=== PATIENT | male | born 1965 | race Caucasian/White ===

== ENCOUNTER → 2016-06-04 | Outpatient (CLI) | payer OTHER | END | disposition home or self-care (01) | LOC: C.PATHSPEC 11:55 | PROVIDERS: ATTEND Dermatology | DX: L30.8 Other specified dermatitis (principal) ==

== ENCOUNTER 2022-02-02 09:52 | Observation (INO) ==
--- NOTE | 2022-02-02 10:18 | Emergency Department Note ---
Impression & Plan Facial droop ED Provider Note NAME: KARLA LIEBERMAN AGE: 57 SEX: M : 1965 ARRIVES VIA: Walk-In INFORMANT: Patient, ED PROVIDER(S): Irvin Means DO CHIEF COMPLAINT: Strokelike symptoms HPI: Is a 57-year-old male noticed this morning when he was drinking his morning drink that he had difficulty drinking and numbness on the right side of his face. The patient looked in the mirror and noticed that he could not smile anika ectly and he noticed that he had a right-sided facial droop which included his forehead. The patient presented to the emergency department for further evaluation of strokelike symptoms. He denies having any chest pain. He denies having any current headache but he has noticed headaches over the last few weeks. He does not take any medications as an outpatient. The patient does not notice any weakness in the arms or legs. He has had no recent trauma. The patient does not spend much time in the little and has not had any recent tick bites. ROS: See above HPI for pertinent positives & negatives. A total of 10 systems reviewed and were otherwise negative. PAST MEDICAL HISTORY: See Below PAST SURGICAL HISTORY: See Below FAMILY HISTORY: See Below SOCIAL HISTORY: See Below HOME MEDICATIONS: See Below ALLERGIES: See Below VITALS: See Below PHYSICAL EXAMINATION: GENERAL: Patient is awake alert in no acute distress patient is resting comfortably and showing no signs of anxiety EYES: The conjunctivae are clear. The pupils are round and reactive. EARS, NOSE, MOUTH AND THROAT: The nose is without any evidence of any deformity. Mucous membranes are moist. Tympanic membranes are clear bilaterally NECK: The neck is nontender and supple. RESPIRATORY: Normal respiratory effort is noted there is no evidence of wheezing rhonchi or rales CARDIOVASCULAR: Regular rate and rhythm noted there no murmurs rubs or gallops normal S1 normal S2. GASTROINTESTINAL: The abdomen is soft. Abdomen is nontender. MUSCULOSKELETAL/EXTREMITIES: There is no evidence of gross deformity full range of motion is noted in the hips and shoulders. SKIN: There is no obvious evidence of any rash. There are no petechiae, pallor or cyanosis noted. NEUROLOGIC: Patient is awake alert and oriented x3 strength is symmetric patellar reflexes are 2+ bilaterally. There is a right-sided facial droop which includes the forehead. MEDICAL DECISION MAKING: The patient is a 57-year-old male who presented to the emergency department for an evaluation of right-sided facial droop. 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 The patient had CT of the brain in the emergency department. This appears to show signs of previous stroke. He has no history of stroke. He has no medical history and no medical follow-up. I discussed the patient's laboratory and radiographic studies with him. I also discussed further work-up which could include MRI of the brain angiography and echocardiogram as well as control of his blood pressure and antiplatelet therapy. Unfortunately since the patient does not have a family doctor I cannot ensure follow-up as well as further testing. I discussed with the patient whether or not we should do some of these tests in the emergency department but given his overall situation we decided to talk this over with the admitting team. They have agreed to evaluate the patient in the emergency department for further management and disposition. I discussed this case with Dr. Rubio who is on for the [facility] hospitalist group. They will evaluate the patient in the emergency department. Triage Nursing notes reviewed. Prior medical records reviewed Vital Signs: reviewed and remarkable for elevated blood pressure Differential diagnosis: Infection, dehydration, metabolic abnormality, hypo/hyperglycemia, electrolyte disturbance, anemia, hypoxia, cardiac sources, intracerebral event, toxicologic, neurologic, as well as other pathologies. ER treatment provided: See below Diagnostics interpreted by me: ECG: EKG was obtained in the emergency department. My interpretation is normal sinus rhythm at 73 bpm. There is no ectopy. LVH was noted by voltage criteria. No previous tracing was available. Cardiac Monitoring: An order was placed for continuous cardiac monitoring. The monitor shows a rate of 66 bpm with sinus rhythm. Laboratory studies: As stated above and show below. Imaging studies: See below Consultation(s): I discussed this case with Dr. Rubio. Made a stroke alert given his onset of symptoms and his last known well time. Past Med/Surg History Medical History (Updated 02/02/22 @ 14:14 by Peter Rubio MD) Hypertension Family History (Updated 02/02/22 @ 13:59 by Peter Rubio MD) Father Hypertension Heart disease Cancer Mother Asthma Social History Feels Safe at Home: Yes Results & Data (ED) Vital Signs Vital Signs - 24 hr 02/02/22 09:58 02/02/22 11:49 02/02/22 13:47 Temperature 37.0 C Temperature Source Temporal Artery Scan Pulse Rate 88 Pulse Rate [Radial] 68 69 Pulse Rhythm [Radial] Regular Regular Respiratory Rate 18 16 18 Respiratory Effort / Characteristics Non-Labored Non-Labored Non-Labored Respiratory Depth Normal Normal Normal Respiratory Pattern Regular Regular Regular Blood Pressure 186/98 H Blood Pressure [Right Arm] 157/90 H 152/90 H Blood Pressure Mean 127 Blood Pressure Mean [Right Arm] 112 110 Blood Pressure Position Sitting Blood Pressure Position [Right Arm] Pulse Oximetry 98 98 97 Oxygen Delivery Method Room Air Room Air Room Air Sepsis Recent Fever Within 48 Hours No Sepsis New/Unexplained Change in Mental Status No Sepsis Action Taken by Nursing No Action Required 02/02/22 14:03 Temperature Temperature Source Pulse Rate Pulse Rate [Radial] 66 Pulse Rhythm [Radial] Respiratory Rate 20 Respiratory Effort / Characteristics Non-Labored Respiratory Depth Normal Respiratory Pattern Blood Pressure Blood Pressure [Right Arm] 158/93 H Blood Pressure Mean Blood Pressure Mean [Right Arm] 114 Blood Pressure Position Blood Pressure Position [Right Arm] Sitting Pulse Oximetry 96 Oxygen Delivery Method Room Air Sepsis Recent Fever Within 48 Hours Sepsis New/Unexplained Change in Mental Status Sepsis Action Taken by Shelter Medications Current Medication List: was personally reviewed by me Laboratory Data Attestation: I reviewed the patient's lab results. Result diagrams: 02/02/22 10:24 02/02/22 10:24 Lab Results 02/02/22 02/02/22 02/02/22 Range/Units 10:24 10:24 10:24 WBC 5.76 (4.8-10.8) K/ul RBC 5.52 (4.63-6.08) M/uL Hgb 16.0 (14.0-18.0) g/dl Hct 44.5 (40.1-51.0) % MCV 80.6 (80.0-100.0) fL MCH 29.0 (25.0-34.0) pg MCHC 36.0 (32.0-36.0) g/dL RDW Std Deviation 37.8 (36.4-46.3) fL RDW Coeff of Judah 13.1 (11.5-14.5) % Plt Count 204 (130-400) K/uL MPV 9.5 (9.4-12.4) fL Immature Gran % (Auto) 0.2 % Neut % (Auto) 49.2 % Lymph % (Auto) 39.2 % [place] % (Auto) 8.9 % Eos % (Auto) 2.3 % Baso % (Auto) 0.2 % Neut # (Auto) 2.84 (1.4-6.5) K/uL Lymph # (Auto) 2.26 (1.2-3.4) K/uL [place] # (Auto) 0.51 (0.24-0.82) K/uL Eos # (Auto) 0.13 (0-0.50) K/uL Baso # (Auto) 0.01 (0-0.2) K/uL Immature Gran # (Auto) 0.01 (0.00-0.02) K/uL Sodium 140 (136-145) mmol/L Potassium 3.5 (3.5-5.1) mmol/L Chloride 106 (98-107) mmol/L Carbon Dioxide 27 (21-32) mmol/L Anion Gap 7 (3-11) BUN 21 (6-23) mg/dl Creatinine 0.90 (0.6-1.4) mg/dl Est Cr Clr Drug Dosing 101.1 ml/min Est GFR ( Amer) 108.7 ml/min Est GFR (Non-Af Amer) 93.8 ml/min BUN/Creatinine Ratio 23.3 H (10-20) Glucose 114 H (70-99(Fasting)) mg/dl Calcium 9.2 (8.5-10.1) mg/dl Magnesium 2.0 (1.7-2.4) mg/dl Total Bilirubin 0.7 (0.2-1.0) mg/dl AST 20 (13-39) U/L ALT 26 (7-52) U/L Alkaline Phosphatase 86 (34-104) U/L Troponin I High Sens 4.4 (0-20) pg/ml Total Protein 6.8 (6.0-8.3) gm/dl Albumin 4.2 (3.4-5.0) gm/dl Globulin 2.6 (2.5-4.0) gm/dl Albumin/Globulin Ratio 1.6 (0.9-2) TSH 1.707 (0.300-4.500) uIu/ml Lyme Disease IgG Ab (Negative) Lyme Disease IgM Ab (Negative) SARS-CoV-2, RNA, NAAT (NEGATIVE) 02/02/22 02/02/22 Range/Units 10:24 11:49 WBC (4.8-10.8) K/ul RBC (4.63-6.08) M/uL Hgb (14.0-18.0) g/dl Hct (40.1-51.0) % MCV (80.0-100.0) fL MCH (25.0-34.0) pg MCHC (32.0-36.0) g/dL RDW Std Deviation (36.4-46.3) fL RDW Coeff of Judah (11.5-14.5) % Plt Count (130-400) K/uL MPV (9.4-12.4) fL Immature Gran % (Auto) % Neut % (Auto) % Lymph % (Auto) % [place] % (Auto) % Eos % (Auto) % Baso % (Auto) % Neut # (Auto) (1.4-6.5) K/uL Lymph # (Auto) (1.2-3.4) K/uL [place] # (Auto) (0.24-0.82) K/uL Eos # (Auto) (0-0.50) K/uL Baso # (Auto) (0-0.2) K/uL Immature Gran # (Auto) (0.00-0.02) K/uL Sodium (136-145) mmol/L Potassium (3.5-5.1) mmol/L Chloride (98-107) mmol/L Carbon Dioxide (21-32) mmol/L Anion Gap (3-11) BUN (6-23) mg/dl Creatinine (0.6-1.4) mg/dl Est Cr Clr Drug Dosing ml/min Est GFR ( Amer) ml/min Est GFR (Non-Af Amer) ml/min BUN/Creatinine Ratio (10-20) Glucose (70-99(Fasting)) mg/dl Calcium (8.5-10.1) mg/dl Magnesium (1.7-2.4) mg/dl Total Bilirubin (0.2-1.0) mg/dl AST (13-39) U/L ALT (7-52) U/L Alkaline Phosphatase (34-104) U/L Troponin I High Sens (0-20) pg/ml Total Protein (6.0-8.3) gm/dl Albumin (3.4-5.0) gm/dl Globulin (2.5-4.0) gm/dl Albumin/Globulin Ratio (0.9-2) TSH (0.300-4.500) uIu/ml Lyme Disease IgG Ab Negative (Negative) Lyme Disease IgM Ab Negative (Negative) SARS-CoV-2, RNA, NAAT NEGATIVE (NEGATIVE) Administered Medications Discontinued Medications Aspirin (Aspirin Chew 324 Mg) 324 mg PO NOW STA Stop: 02/02/22 11:35 Last Admin: 02/02/22 11:48 Dose: 324 mg Documented By: KELLEY Ioversol (Optiray 300 500ml) 120 ml IV ONCE ONE Stop: 02/02/22 14:18 Last Admin: 02/02/22 14:17 Dose: 120 ml Documented By: MARIE Imaging Data Radiologist's Impression: Chest X-Ray 02/02/22 10:15 XR chest 1V portable HISTORY: 57 years-old Male weakness acute weakness COMPARISON: None TECHNIQUE: Portable AP view of the chest FINDINGS: Cardiac silhouette is upper limits of normal in size. No pneumothorax, pleural effusion, airspace consolidation or overt pulmonary edema. Degenerative changes of the shoulders and spine. IMPRESSION: No acute process. ACT 112: Negative or not required by law. The above report was generated using voice recognition software. It may contain grammatical, syntax or spelling errors. Electronically signed by: Raymond Moreira M.D. 02/02/2022 10:[address] 02/02/22 10:15 CT head/brain wo con CLINICAL HISTORY: 57 years-old Male with right facial droop. Acute strokelike symptoms TECHNIQUE: Multiple axial CT images of the head were obtained without contrast. A dose lowering technique was utilized adhering to the principles of ALARA. CT DOSE: 537.48 mGy.cm COMPARISON: None. FINDINGS: No acute intracranial hemorrhage, midline shift, intracranial mass, hydrocepha josafat, territorial ischemia or abnormal extra-axial collection. Minimal involutional changes. Mild white matter hypodensities suggestive of chronic microvascular ischemic disease. Tiny age-indeterminate lacunar infarct of the right caudate head, image 11 series 2. The calvarium is intact. The paranasal sinuses, mastoid air cells, and middle ear cavities are clear. IMPRESSION: 1. No acute territorial infarct, intracranial hemorrhage or midline shift. 2. Mild involutional changes with white matter hypodensities suggestive of probable chronic microvascular ischemic disease. 3. Tiny age-indeterminate right caudate lacunar infarct. ACT 112: Negative or not required by law. The above report was generated using voice recognition software. It may contain grammatical, syntax or spelling errors. Electronically signed by: Raymond Moreira M.D. 02/02/2022 11:00 AM Head CTA 02/02/22 13:30 CT angio neck with con, CT angio head w con CLINICAL HISTORY: 57 years-old Male with Stroke Like Symptoms. Acute strokelike symptoms COMPARISON STUDY: Head CT of same day TECHNIQUE: Following the IV administration of 120 mL of Optiray, CT angiogram of the head and neck was performed from the aortic arch to the skull apex. Images are reviewed in the axial, sagittal, and coronal planes. 3-D MIPS images are created and assessed. IV contrast was administered without complication. All measurements were calculated based on NASCET criteria. A dose lowering technique was utilized adhering to the principles of ALARA. CT DOSE: 597.82 mGy.cm FINDINGS: Three-vessel morphology of the thoracic aortic arch. Patency of the innominate and imaged subclavian arteries. The common and internal carotid arteries are patent. There is no significant atherosclerosis. The middle and anterior cerebral arteries are patent. No aneurysm, dissection, high-grade stenosis or arterial occlusion identified. Patent and codominant vertebral arteries. The basilar and posterior cerebral arteries are patent. The cerebral venous sinuses are patent. There is no abnormal intracranial enhancement identified. Lung apices are clear without pneumothorax. Subcentimeter hypodense thyroid nodules. No acute fracture. Degenerative changes of the cervical spine. IMPRESSION:Unremarkable CTA of the head and neck. ACT 112: Negative or not required by law. The above report was generated using voice recognition software. It may contain grammatical, syntax or spelling errors. Electronically signed by: Raymond Moreira M.D. 02/02/2022 2:34 PM Neck CTA 02/02/22 13:30 CT angio neck with con, CT angio head w con CLINICAL HISTORY: 57 years-old Male with Stroke Like Symptoms. Acute strokelike symptoms COMPARISON STUDY: Head CT of same day TECHNIQUE: Following the IV administration of 120 mL of Optiray, CT angiogram of the head and neck was performed from the aortic arch to the skull apex. Images are reviewed in the axial, sagittal, and coronal planes. 3-D MIPS images are created and assessed. IV contrast was administered without complication. All measurements were calculated based on NASCET criteria. A dose lowering technique was utilized adhering to the principles of ALARA. CT DOSE: 597.82 mGy.cm FINDINGS: Three-vessel morphology of the thoracic aortic arch. Patency of the innominate and imaged subclavian arteries. The common and internal carotid arteries are patent. There is no significant atherosclerosis. The middle and anterior cerebral arteries are patent. No aneurysm, dissection, high-grade stenosis or arterial occlusion identified. Patent and codominant vertebral arteries. The basilar and posterior cerebral arteries are patent. The cerebral venous sinuses are patent. There is no abnormal intracranial enhancement identified. Lung apices are clear without pneumothorax. Subcentimeter hypodense thyroid nodules. No acute fracture. Degenerative changes of the cervical spine. IMPRESSION:Unremarkable CTA of the head and neck. ACT 112: Negative or not required by law. The above report was generated using voice recognition software. It may contain grammatical, syntax or spelling errors. Electronically signed by: Raymond Moreira M.D. 02/02/2022 2:34 PM Discharge Plan Visit Data Chief Complaint: Storm's Palsy Symptoms Stated Complaint: stroke alert ED Provider: Irvin Means Discharge Problem: Facial droop Patient Disposition: Being Evaluated by Hospitalist Forms Stand Alone Forms: My [facility] Referrals Referrals: PCP,NO [Primary Care Provider] -
[2022-02-02 10:31] LABS: Basophils # (auto) 0.01 K/uL (0-0.2); Basophils % (auto) 0.2 %; Eosinophils # (auto) 0.13 K/uL (0-0.50); Eosinophils % (auto) 2.3 %; Hematocrit (blood only) 44.5 % (40.1-51.0); Immature Granulocytes # (auto) 0.01 K/uL (0.00-0.02); Immature Granulocytes % (auto) 0.2 %; Lymphocytes # (auto) 2.26 K/uL (1.2-3.4); Lymphocytes % (auto) 39.2 %; Mean Corpuscular Volume 80.6 fL (80.0-100.0); Mean Platelet Volume 9.5 fL (9.4-12.4); Monocytes # (auto) 0.51 K/uL (0.24-0.82); Monocytes % (auto) 8.9 %; Neutrophils # (auto) 2.84 K/uL (1.4-6.5); Neutrophils % (auto) 49.2 %; Platelet Count 204 K/uL (130-400); RDW Coefficient of Variation 13.1 % (11.5-14.5); RDW Standard Deviation 37.8 fL (36.4-46.3); Red Blood Count 5.52 M/uL (4.63-6.08); White Blood Count 5.76 K/ul (4.8-10.8)
--- NOTE | 2022-02-02 10:46 | XRay Report ---
XR chest 1V portable HISTORY: 57 years-old Male weakness acute weakness COMPARISON: None TECHNIQUE: Portable AP view of the chest FINDINGS: Cardiac silhouette is upper limits of normal in size. No pneumothorax, pleural effusion, airspace con solidation or overt pulmonary edema. Degenerative changes of the shoulders and spine. IMPRESSION: No acute process. ACT 112: Negative or not required by law. The above report was generated using voice recognition software. It may contain grammatical, syntax o r spelling errors. Electronically signed by: Raymond Moreira M.D. 02/02/2022 10:43 AM
[2022-02-02 10:57] LABS: Troponin I High Sensitivity 4.4 pg/ml (0-20)
[2022-02-02 10:59] LABS: Albumin Globulin Ratio 1.6 (0.9-2); Albumin Level 4.2 gm/dl (3.4-5.0); BUN Creatinine Ratio 23.3 (10-20); Bilirubin,Total 0.7 mg/dl (0.2-1.0); Calcium 9.2 mg/dl (8.5-10.1); Creatinine Clr Calc Pharmacy 101.1 ml/min; Est GFR (African American) 108.7 ml/min; Est GFR (Non-African American) 93.8 ml/min; Globulin 2.6 gm/dl (2.5-4.0); Potassium 3.5 mmol/L (3.5-5.1); Total Protein 6.8 gm/dl (6.0-8.3)
--- NOTE | 2022-02-02 11:02 | CT Scan Report ---
CT head/brain wo con CLINICAL HISTORY: 57 years-old Male with right facial droop. Acute strokelike symptoms TECHNIQUE: Multiple axial CT images of the head were obtained without contrast. A dose lowering tech nique was utilized adhering to the principles of ALARA. CT DOSE: 537.48 mGy.cm COMPARISON: None. FINDINGS: No acute intracranial hemorrhage, midline shift, intracranial mass, hydrocephalus, territorial ischem ia or abnormal extra-axial collection. Minimal involutional changes. Mild white matter hypodensities suggestive of chronic microvascular ischemic disease. Tiny age-indeterminate lacunar infarct of the r ight caudate head, image 11 series 2. The calvarium is intact. The paranasal sinuses, mastoid air cells, and middle ear cavities are clear . IMPRESSION: 1. No acute territorial infarct, intracranial hemorrhage or midline shift. 2. Mild involutional changes with white matter hypodensities suggestive of probable chronic microvasc ular ischemic disease. 3. Tiny age-indeterminate right caudate lacunar infarct. ACT 112: Negative or not required by law. The above report was generated using voice recognition software. It may contain grammatical, syntax o r spelling errors. Electronically signed by: Raymond Moreira M.D. 02/02/2022 11:00 AM
[2022-02-02] MEDS ORDERED: ASPIRIN CHEW 324 MG PO STA (11:34)
[2022-02-02 11:48] LABS: Lyme Ab IgG w/WB Rflx Negative (Negative); Lyme Ab IgM w/WB Rflx Negative (Negative)
--- NOTE | 2022-02-02 12:41 | Electrocardiogram Report ---
Test Reason : Blood Pressure : / mmHG Vent. Rate : 073 BPM Atrial Rate : 073 BPM P-R Int : 140 ms QRS Dur : 108 ms QT Int : 422 ms P-R-T Axes : 032 -24 018 degrees QTc Int : 464 ms Normal sinus rhythm Moderate voltage criteria for LVH, may be normal variant Borderline ECG No previous ECGs available Confirmed by Sreekanth Malik ([id number]) on 02/02/2022 12:41:12 PM Referred By: Confirmed By:Joni Malik
--- NOTE | 2022-02-02 14:04 | History & Physical Report ---
Date of Service February 02, 2022 Assessment & Plan (1) Facial droop: Plan: Patient with minimal past medical history History of hypertension for which he did not require medications History of HSV 2 positive status years ago Patient seen by PCP about 14 years ago Overall patient reports good health Now presents with right sided facial weakness/facial droop Asymmetric smile He is able to close both eyes, however if he tries to close only right eye alone he cannot -this is unusual for him Raising of eyebrows, right side seems weaker than left side Concern for Storm's palsy versus CVA Lyme panel negative CT head obtained in the ED, shows no acute pathology, however shows probable chronic microvascular ischemic disease and tiny age undetermined right caudate lacunar infarct Will obtain CT angio head and neck, lipid panel, A1c, echo Monitor on telemetry, ECG in the ED shows normal sinus rhythm Patient received aspirin in the ED, will continue Neurology consult History of Present Illness Chief Complaint: facial droop Primary Care Provider: NO PCP 57-year-old male, with past medical history significant for hypertension, not on medications, past history of HSV-2 positivity, however have not seen PCP in about 14 years, now presents with facial droop. About 3 days ago, patient noticed that his sense of taste was off and was worried that he possibly may have COVID 19. He was tested through drive-through site and was found negative. Otherwise had no other symptoms. No fevers chills cough shortness of breath. Also no abdominal pain nausea vomiting. This morning when he woke up and was having breakfast he noticed some numbness in his lip on the right side. He had difficulty drinking from the glass. When he looked at himself in the mirror, he noticed that his smile was asymmetric. Presented to the ER for concern of stroke. Patient denies any numbness in his extremities or any weakness. Reports that he has been feeling pretty well and that is why he does not see PCP, also reported to ED provider lack of insurance. Past Med/Surg History Medical History (Updated 02/02/22 @ 14:14 by Peter Rubio MD) Hypertension Family History (Updated 02/02/22 @ 13:59 by Peter Rubio MD) Father Hypertension Heart disease Cancer Mother Asthma Social History Feels Safe at Home: Yes Review of Systems Review of Systems: All systems reviewed & are unremarkable except as noted in HPI & below Physical Exam Constitutional: WD/WN, vitals as above Eyes: PERRL, conjunctivae normal, anicteric sclerae ENMT: external ear and nose normal, oropharynx normal Neck: trachea midline, no thyromegaly Respiratory: normal respiratory effort, lungs clear to auscultation Cardiovascular: RRR, no murmur, no edema Chest (Breasts): Chest: normal inspection of chest Gastrointestinal (Abdomen): normal bowel sounds, soft, nontender, no hepatospl enomegaly Musculoskeletal: no cyanosis or clubbing, extremities motor strength 5/5 Skin: no rashes, warm and dry Neurologic: moves all extremities (no sensory loss noted in extremities) and awake Right facial droop, asymmetric smile, difficulty closing right eye, not able to raise eyebrows on the right side as much as on the left Results & Data Results & Data ([facility]) Vital Signs (Past 12 Hours) Vital Signs Temp Pulse Pulse Resp BP BP Pulse Ox 02/02/22 13:47 69 18 152/90 H 97 02/02/22 11:49 68 16 157/90 H 98 02/02/22 09:58 37.0 C 88 18 186/98 H 98 O2 Del Method 02/02/22 13:47 Room Air 02/02/22 11:49 Room Air 02/02/22 09:58 Room Air Laboratory Results 02/02/22 02/02/22 02/02/22 Range/Units 11:49 10:24 10:24 WBC (4.8-10.8) K/ul RBC (4.63-6.08) M/uL Hgb (14.0-18.0) g/dl Hct (40.1-51.0) % MCV (80.0-100.0) fL MCH (25.0-34.0) pg MCHC (32.0-36.0) g/dL RDW Std Deviation (36.4-46.3) fL RDW Coeff of Judah (11.5-14.5) % Plt Count (130-400) K/uL MPV (9.4-12.4) fL Immature Gran % (Auto) % Neut % (Auto) % Lymph % (Auto) % Latimer % (Auto) % Eos % (Auto) % Baso % (Auto) % Neut # (Auto) (1.4-6.5) K/uL Lymph # (Auto) (1.2-3.4) K/uL Latimer # (Auto) (0.24-0.82) K/uL Eos # (Auto) (0-0.50) K/uL Baso # (Auto) (0-0.2) K/uL Immature Gran # (Auto) (0.00-0.02) K/uL Sodium (136-145) mmol/L Potassium (3.5-5.1) mmol/L Chloride (98-107) mmol/L Carbon Dioxide (21-32) mmol/L Anion Gap (3-11) BUN (6-23) mg/dl Creatinine (0.6-1.4) mg/dl Est Cr Clr Drug Dosing ml/min Est GFR ( Amer) ml/min Est GFR (Non-Af Amer) ml/min BUN/Creatinine Ratio (10-20) Glucose (70-99(Fasting)) mg/dl Calcium (8.5-10.1) mg/dl Magnesium (1.7-2.4) mg/dl Total Bilirubin (0.2-1.0) mg/dl AST (13-39) U/L ALT (7-52) U/L Alkaline Phosphatase (34-104) U/L Troponin I High Sens (0-20) pg/ml Total Protein (6.0-8.3) gm/dl Albumin (3.4-5.0) gm/dl Globulin (2.5-4.0) gm/dl Albumin/Globulin Ratio (0.9-2) TSH 1.707 (0.300-4.500) uIu/ml Lyme Disease IgG Ab Negative (Negative) Lyme Disease IgM Ab Negative (Negative) SARS-CoV-2, RNA, NAAT NEGATIVE (NEGATIVE) 02/02/22 02/02/22 Range/Units 10:24 10:24 WBC 5.76 (4.8-10.8) K/ul RBC 5.52 (4.63-6.08) M/uL Hgb 16.0 (14.0-18.0) g/dl Hct 44.5 (40.1-51.0) % MCV 80.6 (80.0-100.0) fL MCH 29.0 (25.0-34.0) pg MCHC 36.0 (32.0-36.0) g/dL RDW Std Deviation 37.8 (36.4-46.3) fL RDW Coeff of Judah 13.1 (11.5-14.5) % Plt Count 204 (130-400) K/uL MPV 9.5 (9.4-12.4) fL Immature Gran % (Auto) 0.2 % Neut % (Auto) 49.2 % Lymph % (Auto) 39.2 % Latimer % (Auto) 8.9 % Eos % (Auto) 2.3 % Baso % (Auto) 0.2 % Neut # (Auto) 2.84 (1.4-6.5) K/uL Lymph # (Auto) 2.26 (1.2-3.4) K/uL Latimer # (Auto) 0.51 (0.24-0.82) K/uL Eos # (Auto) 0.13 (0-0.50) K/uL Baso # (Auto) 0.01 (0-0.2) K/uL Immature Gran # (Auto) 0.01 (0.00-0.02) K/uL Sodium 140 (136-145) mmol/L Potassium 3.5 (3.5-5.1) mmol/L Chloride 106 (98-107) mmol/L Carbon Dioxide 27 (21-32) mmol/L Anion Gap 7 (3-11) BUN 21 (6-23) mg/dl Creatinine 0.90 (0.6-1.4) mg/dl Est Cr Clr Drug Dosing 101.1 ml/min Est GFR ( Amer) 108.7 ml/min Est GFR (Non-Af Amer) 93.8 ml/min BUN/Creatinine Ratio 23.3 H (10-20) Glucose 114 H (70-99(Fasting)) mg/dl Calcium 9.2 (8.5-10.1) mg/dl Magnesium 2.0 (1.7-2.4) mg/dl Total Bilirubin 0.7 (0.2-1.0) mg/dl AST 20 (13-39) U/L ALT 26 (7-52) U/L Alkaline Phosphatase 86 (34-104) U/L Troponin I High Sens 4.4 (0-20) pg/ml Total Protein 6.8 (6.0-8.3) gm/dl Albumin 4.2 (3.4-5.0) gm/dl Globulin 2.6 (2.5-4.0) gm/dl Albumin/Globulin Ratio 1.6 (0.9-2) TSH (0.300-4.500) uIu/ml Lyme Disease IgG Ab (Negative) Lyme Disease IgM Ab (Negative) SARS-CoV-2, RNA, NAAT (NEGATIVE) Diagnostic Findings CT head FINDINGS: No acute intracranial hemorrhage, midline shift, intracranial mass, hydrocephalus, territorial ischemia or abnormal extra-axial collection. Minimal involutional changes. Mild white matter hypodensities suggestive of chronic microvascular ischemic disease. Tiny age-indeterminate lacunar infarct of the right caudate head, image 11 series 2. The calvarium is intact. The paranasal sinuses, mastoid air cells, and middle ear cavities are clear. IMPRESSION: 1. No acute territorial infarct, intracranial hemorrhage or midline shift. 2. Mild involutional changes with white matter hypodensities suggestive of probable chronic microvascular ischemic disease. 3. Tiny age-indeterminate right caudate lacunar infarct. ECG Additional Comments: NSR , HR 73 Code Status & VTE Plan VTE Prophylaxis Plan VTE Prophylaxis will be ordered: Yes
[2022-02-02] MEDS ORDERED: OPTIRAY 300 500mL IV ONE (14:17)
--- NOTE | 2022-02-02 14:37 | CT Scan Report ---
CT angio neck with con, CT angio head w con CLINICAL HISTORY: 57 years-old Male with Stroke Like Symptoms. Acute strokelike symptoms COMPARISON STUDY: Head CT of same day TECHNIQUE: Following the IV administration of 120 mL of Optiray, CT angiogram of the head and neck wa s performed from the aortic arch to the skull apex. Images are reviewed in the axial, sagittal, and c oronal planes. 3-D MIPS images are created and assessed. IV contrast was administered without complic ation. All measurements were calculated based on NASCET criteria. A dose lowering technique was util ized adhering to the principles of ALARA. CT DOSE: 597.82 mGy.cm FINDINGS: Three-vessel morphology of the thoracic aortic arch. Patency of the innominate and imaged subclavian arteries. The common and internal carotid arteries are patent. There is no significant atherosclerosi s. The middle and anterior cerebral arteries are patent. No aneurysm, dissection, high-grade stenosis or arterial occlusion identified. Patent and codominant vertebral arteries. The basilar and posterio r cerebral arteries are patent. The cerebral venous sinuses are patent. There is no abnormal intracra nial enhancement identified. Lung apices are clear without pneumothorax. Subcentimeter hypodense thyroid nodules. No acute fractur e. Degenerative changes of the cervical spine. IMPRESSION:Unremarkable CTA of the head and neck. ACT 112: Negative or not required by law. The above report was generated using voice recognition software. It may contain grammatical, syntax o r spelling errors. Electronically signed by: Raymond Moreira M.D. 02/02/2022 2:34 PM
--- NOTE | 2022-02-02 16:31 | Magnetic Resonance Report ---
MR brain wo con HISTORY: 57 years-old Male poss. cva acute headache with strokelike symptoms COMPARISON: CT head of same day TECHNIQUE: Multiplanar multisequence MRI of the brain was obtained without the use of contrast. FINDINGS: Utilization Reviewer localizer images demonstrate no gross extracranial abnormality. No restricted diffusion to sugg est acute or subacute infarct. The questioned age-indeterminate lacunar infarct of the right caudate head was likely artifactual. The midline structures appear unremarkable. No acute intracranial hemorr maico, midline shift, extra-axial collection, hydrocephalus or intracranial mass. Mild scattered T2/FL AIR hyperintense foci noted within the subcortical and periventricular white matter. The largest focu s of T2/FLAIR prolongation noted within the periventricular left frontal lobe on image 9 series 5. Mi ld involutional changes. No pathologic blooming artifact. Cerebral venous sinuses and major arterial flow voids appear patent. The skull, orbits and soft tissu es are unremarkable. Paranasal sinuses are generally clear. IMPRESSION: 1. No acute intracranial abnormality. No acute or subacute infarct. 2. 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 ACT 112: Negative or not required by law. The above report was generated using voice recognition software. It may contain grammatical, syntax o r spelling errors. Electronically signed by: Raymond Moreira M.D. 02/02/2022 4:29 PM
[2022-02-03 07:07] LABS: Hematocrit (blood only) 42.6 % (40.1-51.0); Hemoglobin 15.4 g/dl (14.0-18.0); Mean Corpuscular Hemoglobin 29.1 pg (25.0-34.0); Mean Corpuscular Hgb Conc 36.2 g/dL (32.0-36.0); Mean Corpuscular Volume 80.4 fL (80.0-100.0); Mean Platelet Volume 9.5 fL (9.4-12.4); Platelet Count 189 K/uL (130-400); RDW Coefficient of Variation 13.3 % (11.5-14.5); RDW Standard Deviation 38.2 fL (36.4-46.3); White Blood Count 6.57 K/ul (4.8-10.8)
[2022-02-03 07:32] LABS: BUN Creatinine Ratio 17.2 (10-20); Chol HDL Ratio 3.7 (0-5); Est GFR (African American) 104.5 ml/min; Est GFR (Non-African American) 90.2 ml/min; Phosphorus 3.5 mg/dl (2.5-4.9); Potassium 3.6 mmol/L (3.5-5.1)
[2022-02-03 08:03] LABS: Estimated Average Glucose 108 mg/dl; Hemoglobin A1C 5.4 % (4.5-5.6)
[2022-02-03] MEDS ORDERED: ASPIRIN 81 MG ECTAB PO SCH (09:00)
--- NOTE | 2022-02-03 10:24 | Neurology Consultation ---
Date of Consultation February 03, 2022 Assessment & Plan (1) Right-sided Storm's palsy: (2) Hypertension: (3) Cerebrovascular disease: Plan 57-year-old male presenting with relatively acute right Storm's palsy yesterday morning with weakness of both the right upper and lower facial musculature, and some weakness of right eyelid closure. Does have some associated sensory and taste disturbance as well. No hyperacusis. No associated cutaneous eruption. No antecedent tick bite, Lyme screening negative. No antecedent vaccination. He does have a low-grade headache, no meningismus, no associated cervical radiculitis. There is evidence of chronic cerebrovascular disease on CT of the head and brain MRI, but again, no evidence of acute or subacute infarct. No vascular lesion identified on CT angiography of the head and neck. Patient was significantly hypertensive at the time of presentation yesterday. His blood pressure appears improved this morning. He has been started on daily low-dose aspirin. No other medications have been administered. Patient's lipid panel is within normal limits. He has a normal sinus rhythm on ECG. Acute Storm's palsy should be treated with a short course of corticosteroids. I would recommend prednisone 60 mg/day for 5 days followed by 5-day taper. The benefit of adding an antiviral medication such as valacyclovir to corticosteroids for treatment of Storm's palsy is not entirely clear. However, this patient does have reported history of HSV-2 positivity. Therefore, I think adding valacyclovir 1000 mg 3 times per day for 1 week is not unreasonable. Further, because this patient does have evidence of chronic cerebrovascular dis ease, continuing with daily low-dose aspirin is not unreasonable in his case. His lipid panel is within normal limits and he probably does not require statin at this time. His blood pressure will likely need ongoing monitoring going forward, he may need treatment for hypertension. Prognosis for Storm's palsy is typically fairly good. This patient does not have complete facial weakness which may predict a better outcome. Further, administration of corticosteroids as above is known to hasten recovery. This patient should not require additional follow-up in neurology clinic. He will need to establish with a PCP going forward, however. History of Present Illness Reason for Consultation: Stroke versus Storm's palsy Requesting Physician: Peter Rubio MD Attending Physician: Dany Thomason MD History of Present Illness The patient is a 57-year-old male with a chief complaint of right facial weakness, upper and lower face, difficulty closing the right eyelid. He noticed the symptoms yesterday morning while eating breakfast. No associated weakness or sensory loss of the limbs. No dysarthria or dysphagia. He also complains of some associated numbness along the right side of the mouth and subtle taste disturbance as well, these particular symptoms began a few days prior and prompted him to have an outpatient COVID test done which was reportedly negative . He denied experiencing any other symptoms such as nasal congestion, runny nose, sore throat, nausea, vomiting or diarrhea. He denies any recent vaccinations. No recent tick bite, no arthralgia or myalgia. No rash. He is currently unemployed, formerly worked in IT. Has not seen a primary care doctor in many years. Although his presentation was primarily consistent with a right peripheral seventh palsy/Storm's palsy, he did have a CT of the head completed during his initial evaluation which revealed a tiny age-indeterminate right caudate lacunar infarct as well as chronic microvascular ischemic disease. He was hypertensive as well. He was subsequently admitted for further evaluation and management given concern for possible stroke. This morning, he denies any significant change to his above symptoms, and again, no weakness or sensory disturbance of the limbs, no dysarthria, no vision disturbance. He is a non- smoker, no known history of diabetes mellitus or dyslipidemia. Again, he does not see a primary care physician regularly and does not take any prescription medications as an outpatient. Allergies Allergy/AdvReac Type Severity Reaction Status Date / Time No Known Allergies Allergy Unverified 02/02/22 15:26 Home Medications Medication Instructions Recorded Confirmed Type aspirin 325 mg tablet,delayed 650 mg PO BID PRN Pain 02/02/22 02/02/22 History release ibuprofen 200 mg tablet 400 mg PO Q6H PRN Pain 02/02/22 02/02/22 History Patient History Medical History (Updated 02/03/22 @ 10:10 by Jake Jack MD) Hypertension Family History (Updated 02/02/22 @ 13:59 by Peter Rubio MD) Father Hypertension Heart disease Cancer Mother Asthma Social History Smoking Status: Never smoker Hx Alcohol Use: No Hx Substance Use: No Preferred Language: Panamanian Communication Ability: Effective Career And Technology Education Teacher Required: No Beliefs That Will Affect Care: None Current Living Situation: Alone Other Information That Helps Us Care for You: No Feels Safe at Home: Yes Safety Concerns: Feels Safe At This Time Assistive Devices: Denture - Upper and Glasses Assistive Devices Comment: upper partial dentures Review of Systems Constitutional: no fever, no chills and no fatigue Eyes: no blind spots, no diplopia and no eye pain Ear, Nose, Mouth, Throat: no ear pain, no tinnitus and no hearing loss Respiratory: no cough and no dyspnea Cardiovascular: no chest pain and no palpitations Gastrointestinal: no nausea and no vomiting Genitourinary: no dysuria or no urinary incontinence Musculoskeletal: no back pain, no neck pain and no myalgia Integumentary: no rash and no lesions Neurologic: + localized weakness, + loss of sensation and + headache(s); no gait abnormality, no tremor(s) and no memory loss Psychiatric: no depression and no anxiety Hematologic / Lymphatic: no easy bleeding and no easy bruising Exam (Neuro) Constitutional: well developed and well nourished; no acute distress Eyes: normal visual beck by confrontation, PERRL, normal accommodation and EOM intact bilaterally; no fundoscopic abnormality, no nystagmus and no papilledema Cardiovascular: Vessels: normal carotid upstroke; no carotid bruit Neurologic: Oriented to:: Person, Place and Time Memory: Short Term Intact and Remote Intact Attention: Span Intact and Concentration Intact Language: Naming Objects and Repeating Phrases Speech Fluency: negative Dysarthria Speech Aphasia: negative Aphasia Fund of Knowledge: Current Events, Past History and Vocabulary Cranial Nerves: Normal II (Visual beck full to confrontation, visual acuity normal), III, IV, (Pupils equal round reactive to light and accommodation, eye movements normal), V (Facial sensation intact), VIII (Hearing intact), IX, X (Palate elevates to midline), XI (Shoulder shrug intact) and XII (Tongue protrudes to midline); Abnorm VII (There is moderate weakness of the right upper and lower facial musculature. Right eyelid closure is weak.) Motor Strength: Normal Lower Extremities and Normal Upper Extremities; negative Pronator Drift Motor Tone: Normal Lower Extremities and Normal Upper Extremities Muscle Bulk/Involuntary Movements: No Involuntary Movements; negative Muscle Atrophy Sensation: Light Touch Intact, Pain/Temperature Intact, Vibration Intact and Proprioception Intact Coordination: Normal; negative Limited Balance, Dysdiadochokinesia, Finger-Nose Abnormal or Heel-Bell Abnormal Deep Tendon Reflexes: Rt Triceps: 2+, Lt Triceps: 2+, Rt Biceps: 2+, Lt Biceps: 2+, Rt Brachioradialis: 2+, Lt Brachioradialis: 2+, Rt Patellar: 2+, Lt Patellar: 2+, Rt Ankle: 2+ and Lt Ankle: 2+ Special Tests: negative Babinski Present Gait: Normal Station and Gait Results & Data ([facility]) Vital Signs (Past 12 Hours) Vital Signs Temp Pulse Pulse Resp BP Pulse Ox O2 Del Method 02/03/22 08:01 36.7 C 61 16 137/73 97 Room Air 02/03/22 03:15 36.7 C 68 16 143/78 H 97 Room Air 02/02/22 22:14 72 02/02/22 23:24 162/89 H 97 Room Air Laboratory Results WBC 6.57, hemoglobin 15.4, hematocrit 42.6, MCV 80.4, platelet count 189, sodium 140, potassium 3.6, BUN 16, creatinine 0.93, glucose 101, hemoglobin A1c 5.4, magnesium 2.0, AST 20, ALT 26, triglycerides 82, cholesterol 177, LDL 113, VLDL 16, HDL 48, TSH 1.707, Lyme screen negative, SARS-CoV-[address] testing negative[address] Findings CT of the head is as described in the history of present illness. CT angiogram of the head and neck unremarkable. Brain MRI negative for acute or subacute infarct, no blooming artifact, no hydrocephalus, no Chiari malformation, there is chronic microvascular ischemic disease, most prominent along the left periventricular region within the left frontal lobe. No evidence of acute or subacute infarct within the right caudate head, observation on CT of the head felt to be artifactual. I did independently review these images and agree with these findings as described by the interpreting radiologist. Electrocardiogram reveals a normal sinus rhythm, 73 bpm. Coding Level of Care Code 80273 Initial Inpt Care Lvl 3 Diagnoses Right-sided Storm's palsy G51.0 Hypertension I10 Cerebrovascular disease I67.9
[2022-02-03] MEDS ORDERED: predniSONE 20 MG TAB PO SCH (10:45)
--- NOTE | 2022-02-03 11:58 | Discharge Summary ---
Date of Service February 03, 2022 Admission HPI Per Admitting Provider 57-year-old male, with past medical history significant for hypertension, not on medications, past history of HSV-2 positivity, however have not seen PCP in about 14 years, now presents with facial droop. About 3 days ago, patient noticed that his sense of taste was off and was worried that he possibly may have COVID 19. He was tested through drive-through site and was found negative. Otherwise had no other symptoms. No fevers chills cough shortness of breath. Also no abdominal pain nausea vomiting. This morning when he woke up and was having breakfast he noticed some numbness in his lip on the right side. He had difficulty drinking from the glass. When he looked at himself in the mirror, he noticed that his smile was asymmetric. Presented to the ER for concern of stroke. Patient denies any numbness in his extremities or any weakness. Reports that he has been feeling pretty well and that is why he does not see PCP, also reported to ED provider lack of insurance. Admission Exam Per Admitting Provider Constitutional: WD/WN, vitals as above Eyes: PERRL, conjunctivae normal, anicteric sclerae ENMT: external ear and nose normal, oropharynx normal Neck: trachea midline, no thyromegaly Respiratory: normal respiratory effort, lungs clear to auscultation Cardiovascular: RRR, no murmur, no edema Chest (Breasts): Chest: normal inspection of chest Gastrointestinal (Abdomen): normal bowel sounds, soft, nontender, no hepatosplenomegaly Musculoskeletal: no cyanosis or clubbing, extremities motor strength 5/5 Skin: no rashes, warm and dry Neurologic: moves all extremities (no sensory loss noted in extremities) and awake Right facial droop, asymmetric smile, difficulty closing right eye, not able to raise eyebrows on the right side as much as on the left Principal Diagnosis Storm's Palsy Discharge Exam Constitutional: WD/WN, vitals as above Eyes: PERRL, conjunctivae normal, anicteric sclerae ENMT: external ear and nose normal, oropharynx normal Neck: trachea midline, no thyromegaly Respiratory: normal respiratory effort, lungs clear to auscultation Cardiovascular: RRR, no murmur, no edema Chest (Breasts): Chest: normal inspection of chest Gastrointestinal (Abdomen): normal bowel sounds, soft, nontender, no hepatosplenomegaly Musculoskeletal: no cyanosis or clubbing, extremities motor strength 5/5 Skin: no rashes, warm and dry Neurologic: moves all extremities (no sensory loss noted in extremities) and awake Right facial droop, asymmetric smile, difficulty closing right eye, not able to raise eyebrows on the right side as much as on the left Discharge Data Allergies Allergy/AdvReac Type Severity Reaction Status Date / Time No Known Allergies Allergy Unverified 02/02/22 15:26 Consultations 02/02/22 11:59 ED Decision to Admit Stat 02/02/22 17:08 Consult Neurology Routine Ordered Studies 02/02/22 10:15 CT head/brain wo con Stat 02/02/22 13:30 CT angio head w con Stat CT angio neck with con Stat 02/02/22 14:54 MR brain wo con Routine Hospital Course (1) Facial droop: Patient with minimal past medical history History of hypertension for which he did not require medications History of HSV 2 positive status years ago Patient seen by PCP about 14 years ago Overall patient reports good health Now presents with right sided facial weakness/facial droop Asymmetric smile He is able to close both eyes, however if he tries to close only right eye alone he cannot -this is unusual for him Raising of eyebrows, right side seems weaker than left side Concern for Storm's palsy versus CVA - Storm's Palsy likely Lyme panel negative CTA head and neck, MRI brain negative for acute stroke Neurology consult - 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 - 5 days of 60mg prednisone, then 5 day tapeer - 5 day course of acyclovir given HSV history - ok to discharge with PCP follow up Total Time Total Time Spent Total Time Spent (In Minutes): 35 Total Time Includes: Examination of the Patient, Discharge Planning, Medication Reconciliation and Communication With Other Providers Discharge Plan Discharge Items Patient Disposition: Home - Self-Care Reason For Visit: STROKE LIKE SYMPTOMS Discharge Diagnosis: storm's palsy Activity: Resume your previous activity Non-emergency contact: Primary Care Provider Call non-emergency contact if: you have any medication questions and your symptoms worsen Follow-up/Referrals: Italo Mackey DO [Outside Practitioners] - (Date & Time 02/07/2022 11:20 AM Provider Italo Mackey DO Department Family [facility] [address], [place] [address] ) Diet: Heart Healthy Addtl Attending Provider Instructions: You were admitted for storm's palsy with upper and lower face weakness. You had CT and MRI of your brain and there was no evidence of a stroke. You were seen by neurology who recommends a 5 day course of 60mg of Prednisone daily with a 5 day taper (40-->30-->2-->10-->5) and valacyclovir for 5 days at 1000mg 3x/day. You should have a follow up with a Primary Care doctor within 1-2 weeks of discharge to establish care and review your hospitalization. Pending Studies at Discharge: No Stand-Alone Forms: My [facility] [employer], Smoking Cessation Medications and DC Order Prescriptions: New atorvastatin 20 mg Tablet 20 mg PO QAM Qty: 30 0RF prednisone 20 mg Tablet 60 mg PO DAILY Qty: 4 0RF prednisone 10 mg tablet 10 mg PO DAILY Qty: 11 0RF Rx Instructions: To be taken after 5 days of 60mg daily Taper: 40mg x1 day, 30mg x1 day, 20mg x1 day, 10mg x1 day, 5mg x1 day valacyclovir 500 mg Tablet 1,000 mg PO TID Qty: 30 0RF Discontinued aspirin 325 mg Tablet,Delayed Release (Dr/Ec) 650 mg PO BID PRN (Reason: Pain) ibuprofen 200 mg Tablet 400 mg PO Q6H PRN (Reason: Pain) Discharge Orders: Discharge Order (Routine); Ordered 02/03/22 Ordered By: Dany Thomason Admission Data Admit Date/Time: 02/02/22 13:46 Attending Provider: Dany Thomason Admit Provider: Peter Rubio Primary Care Provider: PCP,NO Other Providers: Peter Rubio ; Jake Jack Other Interventions: Discharge Summary Assessment (RN) Last Done: 02/03/22 11:28
[2022-02-03] MEDS ORDERED: valACYclovir HCL 500 MG TABLET PO SCH (14:00)
[2022-02-04] MEDS ORDERED: ATORVASTATIN 20 MG TAB PO SCH (09:00)
== END 2022-02-03 13:39 | disposition home or self-care (01) ==
LOC: ED 09:52 → EDINP 09:52 → SUATTDRO 13:46 → 2N 17:09
DX: I67.9 Cerebrovascular disease, unspecified; G51.0 Bell's palsy